=== PATIENT | female | born 1995 | race Caucasian/White ===

== ENCOUNTER 2019-07-31 19:39 | Emergency (ER) | payer SELFPAY ==
[2019-07-31 20:00] VITALS: BP 122/71
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
[2019-07-31 23:35] LABS: HCG Qualitative,Urine Positive (Negative)
[2019-08-01] MEDS ORDERED: HYDROcodone/ACETAMINOPHEN 10-325MG TAB PO ONE (00:05)
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
--- NOTE | 2019-08-01 01:23 | XRay Report ---
RIGHT WRIST 3 VIEW(S) INDICATION / CLINICAL INFORMATION: pain COMPARISON: None available. FINDINGS: BONES / JOINT(S): No acute fracture or subluxation. No significant arthritis. SOFT TISSUES: No significant abnormality. ADDITIONAL FINDINGS: None. Signer Name: Gerardo Thompson MD Signed: 08/01/2019 1:19 AM Workstation Name: [id number]
== END 2019-08-01 01:40 | disposition home or self-care (01) ==
LOC: ED 19:39
DX: S13.4XXA Sprain of ligaments of cervical spine, initial encounter (principal); S66.911A Strain of unspecified muscle, fascia and tendon at wrist and hand level, right hand, initial encounter; S20.211A Contusion of right front wall of thorax, initial encounter; Z32.01 Encounter for pregnancy test, result positive; Z79.1 Long term (current) use of non-steroidal anti-inflammatories (NSAID); Z79.899 Other long term (current) drug therapy; V89.2XXA Person injured in unspecified motor-vehicle accident, traffic, initial encounter; Y93.89 Activity, other specified; Y92.488 Other paved roadways as the place of occurrence of the external cause; Y99.8 Other external cause status
CPT/HCPCS: 71046; 72040; 81025

== ENCOUNTER 2020-03-25 05:30 | Inpatient (IN) | payer OTHER ==
[2020-03-25] MEDS ORDERED: LIDOCAINE (2%) 20 MG/1 ML VIAL 20 ML MDV INFILTRATI ONE ×2 (06:31→10:48)
[2020-03-25] MEDS ORDERED: ePHEDrine SULFATE 50 MG/1 ML INJ IV PRN (06:31)
[2020-03-25] MEDS ORDERED: TERBUTALINE 1 MG/1 ML INJ SUB-Q PRN (06:31)
[2020-03-25] MEDS ORDERED: fentaNYL 100 MCG/2 ML INJ IV PRN (06:31)
--- NOTE | 2020-03-25 06:37 | History and Physical Report ---
History of Present Illness Date of examination: 03/25/20 Date of admission: 03/25/2020 Chief complaint: Leaking of fluid for past 1 hour and 40 minutes History of present illness: 24 year old presents with complaint of leaking water from vagina for past hour and 40 minutes. Patient states she has also felt some mild contractions in the past hour. She denies vaginal bleeding. She reports active movement. Patient received preanatal care at [facility] and she brings records with her. significant for the following: rubella nonimmune, elevated one hour sugar test (with one elevated value on 3 hour OGTT). labs are as follows: O+, antibody screen negative, rubella nonimmune, hepatitis B surface antigen negative, HIV negative, RPR nonreactive, gonorrhea negative, chlamydia negative, GBS negative, 1 hour sugar test 156 (with only one abnormal value on 3 hour OGTT). Past History Past Medical History: no pertinent history Past Surgical History: appendectomy [employer] History: denies: chlamydia, gonorrhea, hepatitis B, hepatitis C, herpes, HIV, syphilis, trichomonas Family/Genetic History: diabetes Social history: , full code. denies: smoking, alcohol abuse, prescription drug abuse, IV drug use - Obstetrical History Expected Date of Delivery: 04/09/20 Actual Gestation: 37 Week(s) 6 Day(s) : 2 Para: 0 Hx # Term Pregnancies: 0 Number of Pregnancies: 0 Spontaneous Abortions: 1 Induced : 0 Number of Living Children: 0 Medications and Allergies Allergies Allergy/AdvReac Type Severity Reaction Status Date / Time No Known Allergies Allergy Verified 05/30/15 23:01 Home Medications Medication Instructions Recorded Confirmed Last Taken Type Ibuprofen [Motrin] 800 mg PO Q8HR PRN #20 tablet 05/31/15 Unknown Rx Acetaminophen [Tylenol] 325 mg PO Q6H PRN #20 capsule 08/01/19 Unknown Rx 21/Iron Fu/Folic Acid 1 each PO DAILY #30 tablet 08/01/19 Unknown Rx [ Complete Caplet] Review of Systems All systems: negative (leaking of fluid from vagina and mild contractions) - Vital Signs Vital signs: Vital Signs Pulse Pulse Ox 71 99 03/25/20 05:49 03/25/20 05:49 Temp Pulse Resp BP Pulse Ox 98.5 F 67 16 117/76 99 03/25/20 05:51 03/25/20 06:29 03/25/20 05:51 03/25/20 05:51 03/25/20 06:29 - Physical Exam Abdomen: Positive: normal appearance, soft. Negative: distention, tenderness, guarding, rigidity Genitourinary (Female): Positive: normal external genitalia, normal perenium. Negative: perineal/vulvar lesions Vagina: Positive: other (small amount of clear fluid seen leaking from vagina) Uterus: Positive: enlarged. Negative: tender Anus/Rectum: Positive: normal perianal skin - Obstetrical FHR: category 1 Uterine Contraction Monitor Mode: External Cervical Dilatation: 3 Cervical Effacement Percentage: 70 station: -2 Uterine Contraction Pattern: Irregular Uterine Contraction Intensity: Mild Results All other labs normal. Assessment and Plan A: at 37 weeks, 6 days gestation. SROM. GBS negative. Early labor. P: Admit. EFM. See orders.
[2020-03-25] MEDS ORDERED: LACTATED RINGERS 1,000 ML IV SCH (07:00)
[2020-03-25 07:03] LABS: Hematocrit 38.5 % (30.3-42.9); Hemoglobin 12.8 gm/dl (10.1-14.3); Mean Corpuscular HGB Conc 33 % (30-34); Mean Corpuscular Volume 92 fl (79-97); Platelet Count 216 K/mm3 (140-440); Red Blood Count 4.21 M/mm3 (3.65-5.03); Red Cell Distribution Width 14.7 % (13.2-15.2)
[2020-03-25] MEDS ORDERED: BUTORPHANOL 2 MG/1 ML INJ IV PRN (09:56)
[2020-03-25] MEDS ORDERED: OXYTOCIN DRIP 30 UNITS/500 ML BAG IV SCH (10:00)
--- NOTE | 2020-03-25 10:01 | Progress Note ---
Assessment and Plan A: IUP @ 37 6/7 Weeks SROM GBS Negative P: Admit to L&D Per Routine Orders Start Pitocin Augmenation Prepare for Epidural Anesthesia Subjective - Subjective Date of service: 03/25/20 Patient reports: movement normal, contractions Objective - Vital Signs Vital Signs: Vital Signs - 12hr 03/25/20 03/25/20 03/25/20 05:49 05:50 05:51 Temperature 98.5 F Pulse Rate 71 67 77 Respiratory 16 Rate Blood Pressure 117/76 Blood Pressure 117/76 [Left] O2 Sat by Pulse 99 99 Oximetry 03/25/20 03/25/20 03/25/20 05:54 05:59 06:04 Temperature Pulse Rate 76 80 65 Respiratory Rate Blood Pressure Blood Pressure [Left] O2 Sat by Pulse 98 99 98 Oximetry 03/25/20 03/25/20 03/25/20 06:09 06:14 06:19 Temperature Pulse Rate 71 54 L 72 Respiratory Rate Blood Pressure Blood Pressure [Left] O2 Sat by Pulse 99 99 99 Oximetry 03/25/20 03/25/20 03/25/20 06:24 06:29 06:34 Temperature Pulse Rate 69 67 69 Respiratory Rate Blood Pressure Blood Pressure [Left] O2 Sat by Pulse 99 99 98 Oximetry 03/25/20 03/25/20 03/25/20 06:39 06:44 06:49 Temperature Pulse Rate 69 70 70 Respiratory Rate Blood Pressure Blood Pressure [Left] O2 Sat by Pulse 99 99 99 Oximetry 03/25/20 03/25/20 03/25/20 06:54 07:30 07:43 Temperature 97.9 F Pulse Rate 72 64 64 Respiratory 16 Rate Blood Pressure Blood Pressure 127/80 [Left] O2 Sat by Pulse 100 99 99 Oximetry 03/25/20 03/25/20 03/25/20 07:48 07:53 07:58 Temperature Pulse Rate 71 64 69 Respiratory Rate Blood Pressure Blood Pressure [Left] O2 Sat by Pulse 99 99 98 Oximetry 03/25/20 03/25/20 03/25/20 08:03 08:08 08:13 Temperature Pulse Rate 66 74 58 L Respiratory Rate Blood Pressure Blood Pressure [Left] O2 Sat by Pulse 99 98 99 Oximetry 03/25/20 03/25/20 03/25/20 08:18 08:23 08:28 Temperature Pulse Rate 66 63 59 L Respiratory 18 Rate Blood Pressure Blood Pressure [Left] O2 Sat by Pulse 99 99 99 Oximetry 03/25/20 03/25/20 03/25/20 08:33 08:35 08:36 Temperature Pulse Rate 65 81 64 Respiratory Rate Blood Pressure 115/57 Blood Pressure [Left] O2 Sat by Pulse 99 91 Oximetry 03/25/20 03/25/20 03/25/20 08:38 08:43 08:48 Temperature Pulse Rate 63 64 67 Respiratory Rate Blood Pressure Blood Pressure [Left] O2 Sat by Pulse 97 97 98 Oximetry 03/25/20 03/25/20 03/25/20 08:53 08:58 09:03 Temperature Pulse Rate 61 60 66 Respiratory Rate Blood Pressure Blood Pressure [Left] O2 Sat by Pulse 97 98 99 Oximetry 03/25/20 03/25/20 03/25/20 09:08 09:13 09:18 Temperature Pulse Rate 60 64 68 Respiratory Rate Blood Pressure Blood Pressure [Left] O2 Sat by Pulse 98 98 99 Oximetry 03/25/20 03/25/20 03/25/20 09:23 09:28 09:33 Temperature Pulse Rate 70 69 63 Respiratory Rate Blood Pressure Blood Pressure [Left] O2 Sat by Pulse 98 99 98 Oximetry 03/25/20 03/25/20 03/25/20 09:36 09:38 09:43 Temperature Pulse Rate 94 H 78 74 Respiratory Rate Blood Pressure 122/77 Blood Pressure [Left] O2 Sat by Pulse 98 99 Oximetry 03/25/20 03/25/20 03/25/20 09:47 09:48 09:53 Temperature Pulse Rate 87 96 H 75 Respiratory Rate Blood Pressure Blood Pressure [Left] O2 Sat by Pulse 92 97 98 Oximetry - Exam Breasts: normal Cardiovascular: Regular rate Lungs: Clear to auscultation, Normal air movement Abdomen: Present: normal appearance, soft, normal bowel sounds Uterus: Present: normal, firm, fundal height above umbilicus FHR: auscultation normal Uterine Contraction Monitor Mode: External Cervical Dilatation: 5 (leaking a moderate amount of clear fluid) Cervical Effacement Percentage: 100 station: 0 Uterine Contraction Pattern: Irregular Uterine Tone Measurement Phase: Resting Uterine Contraction Intensity: Moderate Extremities: normal - Labs Labs: Laboratory Results - last 24 hr 03/25/20 03/25/20 06:35 06:35 WBC 9.5 RBC 4.21 Hgb 12.8 Hct 38.5 MCV 92 MCH 30 MCHC 33 RDW 14.7 Plt Count 216 Blood Type O POSITIVE Antibody Screen Negative
[2020-03-25] MEDS ORDERED: MINERAL OIL 30 ML ORAL LIQD ONE (10:32)
[2020-03-25] MEDS: OXYTOCIN 20 UNIT/1000ML DRIP 20 UNITS/1,000 ML BAG IV SCH ×2 (10:52→11:51)
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
[2020-03-25] MEDS ORDERED: diphenhydrAMINE 25 MG CAP PO PRN (11:31)
[2020-03-25] MEDS ORDERED: LANOLIN/ZINC/DIMETHICONE (LANSINOH) 7 GM TP PRN (11:31)
[2020-03-25] MEDS ORDERED: BENZOCAINE/MENTHOL 20/0.5% TOP SPRAY 56 GM TP PRN (11:31)
[2020-03-25] MEDS ORDERED: HYDROCORTISONE 25 MG RECTAL SUPP PR PRN (11:31)
[2020-03-25] MEDS ORDERED: HYDROcodone/ACETAMINOPHEN 5-325 MG TAB PO PRN (11:31)
[2020-03-25] MEDS ORDERED: WITCH HAZEL/ GLYCERIN PAD TP PRN (11:31)
[2020-03-25] MEDS: SENNOSIDES/DOCUSATE SODIUM 8.6/50 MG TAB PO SCH (14:21)
[2020-03-25] MEDS: IBUPROFEN 600 MG TAB PO SCH ×2 (14:21→23:56)
[2020-03-26 00:20] LABS: Hematocrit 29.5 % (30.3-42.9)
[2020-03-26] MEDS: SENNOSIDES/DOCUSATE SODIUM 8.6/50 MG TAB PO SCH ×2 (01:55→12:26)
[2020-03-26] MEDS: IBUPROFEN 600 MG TAB PO SCH ×2 (05:46→12:26)
--- NOTE | 2020-03-26 09:15 | Progress Note ---
Assessment and Plan - Patient Problems (1) Status post normal vaginal delivery Current Visit: Yes Status: Acute Plan to address problem: D/C today per pt request, may go as long as baby is ok for d/c also F/U at office in 6 wks for routine PP visit or prn (2) Anemia Current Visit: Yes Status: Acute Qualifiers: Anemia type: other cause Other causes of anemia: acute posthemorrhagic Qualified Code(s): D62 - Acute posthemorrhagic anemia Plan to address problem: Asymptomatic Continue daily oral iron supplementation as directed Increase iron rich foods into diet Subjective - Subjective Date of service: 03/26/20 Principal diagnosis: S/P ; PPD#1 Interval history: See admission H & P and OB delivery summary Patient reports: appetite normal, voiding normally, pain well controlled, flatus, ambulating normally : doing well, bottle feeding Objective - Vital Signs Latest vital signs: Vital Signs Temp Pulse Resp BP BP Pulse Ox 03/26/20 05:46 20 03/26/20 00:08 98.0 F 80 20 99/51 98 03/25/20 23:56 20 03/25/20 20:36 98.2 F 70 18 102/54 98 03/25/20 13:50 97.8 F 71 20 111/59 97 03/25/20 13:23 62 99 03/25/20 13:18 66 100 03/25/20 13:13 72 111/61 99 03/25/20 13:08 69 99 03/25/20 13:03 59 L 97 03/25/20 12:58 61 107/58 98 03/25/20 12:53 69 98 03/25/20 12:48 75 98 03/25/20 12:43 63 111/54 96 03/25/20 12:38 71 98 03/25/20 12:33 65 98 03/25/20 12:31 98.7 F 03/25/20 12:28 69 114/59 98 03/25/20 12:23 75 97 03/25/20 12:18 68 98 03/25/20 12:13 70 114/58 98 03/25/20 12:08 73 98 03/25/20 12:03 79 97 03/25/20 11:58 73 114/56 99 03/25/20 11:53 79 98 03/25/20 11:48 73 97 06/29/20 11:43 82 113/56 97 03/25/20 11:38 77 98 03/25/20 11:33 86 97 03/25/20 11:28 84 118/58 98 03/25/20 11:23 96 H 97 03/25/20 11:18 92 H 98 03/25/20 11:13 85 145/53 98 03/25/20 11:08 94 H 98 03/25/20 11:03 93 H 98 03/25/20 10:58 94 H 98 03/25/20 10:57 87 115/56 03/25/20 10:53 95 H 98 03/25/20 10:48 102 H 96 03/25/20 10:44 119 H 86 03/25/20 10:43 128 H 98 03/25/20 10:38 116 H 97 03/25/20 10:35 117 H 89 03/25/20 10:33 91 H 96 03/25/20 10:29 80 83 L 03/25/20 10:28 87 99 03/25/20 10:23 84 98 03/25/20 10:18 85 98 03/25/20 10:13 80 96 03/25/20 10:08 79 98 03/25/20 10:03 67 20 98 03/25/20 09:58 66 98 03/25/20 09:53 75 98 03/25/20 09:48 96 H 97 03/25/20 09:47 87 92 03/25/20 09:43 74 99 03/25/20 09:38 78 98 03/25/20 09:36 94 H 122/77 03/25/20 09:33 63 98 03/25/20 09:28 69 99 03/25/20 09:23 70 98 03/25/20 09:18 68 99 03/25/20 09:13 64 98 Intake and Output 03/25/20 03/26/20 03/26/20 23:59 07:59 15:59 Intake Total 240 120 Balance 240 120 Intake: Intake, Free Water 240 120 Other: # Voids Void 1 1 - Exam Breasts: Present: normal Cardiovascular: Present: Regular rate Lungs: Present: Normal air movement Abdomen: Present: soft Uterus: Present: firm, fundal height below umbilicus (U-2) Extremities: Present: normal Deep Tendon Reflex Grade: Normal +2 Incision: Present: other (2nd degree laceration, healing as expected) - Labs Labs: Abnormal lab results 03/25/20 Range/Units 23:27 Hgb 10.0 L (10.1-14.3) gm/dl Hct 29.5 L D (30.3-42.9) %
--- NOTE | 2020-03-26 09:20 | Discharge Summary ---
Providers - Providers Date of Admission: 03/25/20 06:31 Date of discharge: 03/26/20 Attending physician: COOPER SKELTON Primary care physician: COOPER SKELTON Hospitalization Reason for admission: active labor Delivery: Episiotomy: none Laceration: 2nd degree (healing as expected) Other procedures: none complications: none Discharge diagnosis: IUP at term delivered Speed baby: male Hospital course: See admission H & P; OB delivery summary and PP progress notes Condition at discharge: Stable Disposition: DC-01 TO HOME OR SELFCARE - Discharge Diagnoses (1) Status post normal vaginal delivery Status: Acute (2) Anemia Status: Acute Qualifiers: Anemia type: other cause Other causes of anemia: acute posthemorrhagic Qualified Code(s): D62 - Acute posthemorrhagic anemia Plan - Discharge Medications Prescriptions: Ferrous Sulfate [Feosol 325 MG tab] 325 mg PO QDAY 30 Days #30 tablet - Provider Discharge Summary Activity: routine, no sex for 6 weeks, no heavy lifting 4 weeks, no strenuous exercise Diet: other (Iron rich diet) Instructions: routine Additional instructions: [] Smoking cessation referral if applicable(refer to patient education folder for contact #) [] Refer to [facility] Booklet Call your doctor immediately for: * Fever > 100.5 * Heavy vaginal bleeding ( >1 pad per hour) * Severe persistent headache * Shortness of breath * Reddened, hot, painful area to leg or breast * Drainage or odor from incision. * Keep incision clean and dry at all times and follow doctor's instructions regarding bathing/showering - Follow up plan Follow up: COOPER SKELTON MD [Primary Care Provider] - 6 Weeks
[2020-03-26] MEDS ORDERED: PRENATAL VIT27-FE FUMARATE-FOLIC ACID VIT TAB PO SCH (10:00)
[2020-03-26] MEDS ORDERED: FERROUS SULFATE 325 MG TAB PO SCH (10:00)
[2020-03-26 14:05] VITALS: BP 92/50
== END 2020-03-26 14:00 | disposition home or self-care (01) | DRG 806 ==
LOC: TRG 05:30 → APU 05:39 → TRG 06:31 → LD 06:31 → OB 14:13
PROVIDERS: ADMIT Obstetrics & Gynecology; ATTEND Obstetrics & Gynecology
PROC: 10E0XZZ Delivery of Products of Conception, External Approach (ICD-10-PCS; principal; 2020-03-25)
PROC: 0KQM0ZZ Repair Perineum Muscle, Open Approach (ICD-10-PCS; 2020-03-25)
PROC: 3E0R3BZ Introduction of Anesthetic Agent into Spinal Canal, Percutaneous Approach (ICD-10-PCS; 2020-03-25)
PROC: 00HU33Z Insertion of Infusion Device into Spinal Canal, Percutaneous Approach (ICD-10-PCS; 2020-03-25)
DX: O70.1 Second degree perineal laceration during delivery (principal); D62 Acute posthemorrhagic anemia; Z37.0 Single live birth; O90.81 Anemia of the puerperium; Z90.49 Acquired absence of other specified parts of digestive tract; Z3A.37 37 weeks gestation of pregnancy; Z83.3 Family history of diabetes mellitus
CPT/HCPCS: 36415; 85014; 85018; 85027; 86850; 86900; 86901; G0378; J0595; J2590; J3010; J7120